=== PATIENT | male | born 1955 | race American Indian/Alaskan Native ===

== ENCOUNTER 2017-11-15 11:12 | Emergency (ER) | payer BC ==
--- NOTE | 2017-11-15 11:52 | Emergency Department Report ---
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 He has tooth pain and productive cough brownish sputum. +hx of tobacco abuse No recent travel out of the country. 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 denies: sore throat ED Review of Systems ROS: Stated complaint: FEVER Other details as noted in HPI Comment: All other systems reviewed and negative Constitutional: fever, malaise ENT: dental pain. denies: throat pain Respiratory: cough Cardiovascular: denies: chest pain Gastrointestinal: denies: abdominal pain ED Past Medical Hx - Past Medical History Previous Medical History?: Yes Hx Hypertension: Yes Hx Diabetes: Yes - Surgical History Past Surgical History?: No - Social History Smoking Status: Former Smoker Smoking End Date: 09/04/17 Substance Use Type: None - Medications Home Medications: Home Medications Medication Instructions Recorded Confirmed Last Taken Type Levofloxacin [Levaquin] 750 mg PO QDAY 7 Days #7 tablet 11/15/17 Unknown Rx ED Physical Exam - General Limitations: No Limitations General appearance: alert, in no apparent distress - Head Head exam: Present: atraumatic, normocephalic - Eye Eye exam: Present: normal appearance - ENT ENT exam: Present: mucous membranes moist, other (abdominal inflammation and tooth decay of teeth #2 and 3) - Neck Neck exam: Present: normal inspection - Respiratory Respiratory exam: Present: normal lung sounds bilaterally, rales. Absent: respiratory distress, wheezes, rhonchi - Cardiovascular Cardiovascular Exam: Present: regular rate, normal rhythm, normal heart sounds. Absent: systolic murmur, diastolic murmur, rubs, gallop - GI/Abdominal GI/Abdominal exam: Present: soft, normal bowel sounds. Absent: distended, tenderness, guarding, rebound - Rectal Rectal exam: Present: deferred - Extremities Exam Extremities exam: Present: normal inspection - Back Exam Back exam: Present: normal inspection - Neurological Exam Neurological exam: Present: alert, oriented X3 - Psychiatric Psychiatric exam: Present: normal affect, normal mood - Skin Skin exam: Present: warm, dry, intact, normal color. Absent: rash ED Course Vital Signs 11/15/17 11:21 Temperature 99.8 F H Pulse Rate 87 Respiratory 16 Rate Blood Pressure 166/86 O2 Sat by Pulse 96 Oximetry ED Medical Decision Making - Medical Decision Making Dr. Andre presents with fever, productive cough and dental pain. Appears well. With hx of tobacco abuse, antibiotics are indicated for bronchitis. rx: levaquin Critical care attestation.: If time is entered above; I have spent that time in minutes in the direct care of this critically ill patient, excluding procedure time. ED Disposition Clinical Impression: Acute bronchitis, Dental infection Disposition: DC-01 TO HOME OR SELFCARE Is pt being admited?: No Does the pt Need Aspirin: No Condition: Stable Instructions: Acute Bronchitis (ED), Dental Caries (ED) Prescriptions: Levofloxacin [Levaquin] 750 mg PO QDAY 7 Days #7 tablet Time of Disposition: 11:55
[2017-11-15 12:03] VITALS: BP 153/74
== END 2017-11-15 12:21 | disposition home or self-care (01) ==
LOC: ED 11:12
DX: J20.9 Acute bronchitis, unspecified (principal); K04.7 Periapical abscess without sinus; I10 Essential (primary) hypertension; E11.9 Type 2 diabetes mellitus without complications; Z87.891 Personal history of nicotine dependence
CPT/HCPCS: 99282